=== PATIENT | female | born 1980 | race African-American/Black ===

== ENCOUNTER 2018-01-29 15:31 | Emergency (ER) | payer BC ==
[~2018-01-29] VITALS: Ht 177.8 cm; Wt 62.7 kg
[2018-01-29 15:36] VITALS: TEMP 36.7; Ht 177.8 cm; Wt 62.7 kg
--- NOTE | 2018-01-29 16:47 | EMERGENCY ROOM VISIT NOTE ---
History Report prepared by Inocencia: Jhonathan German Under the Supervision of: Dr. Joseph Talley D.O. First contact with patient: 16:10 Chief Complaint: HEADACHE Stated Complaint: HOT FLASHES, SOB, DIZZINESS, CONFUSION,MIGRAINE History of Present Illness The patient is a 38 year old female who presents to the Emergency Room with complaints of persistent hot flashes beginning a week ago. Per resident, the patient been having hot flashes for the last week and has about 18 episodes per day. He states that the patient also complains of vaginal bleeding, night diaphoresis, confusion, slurred speech, a headache, SOB, heart racing, and blurry vision. He reports that the patient been having vaginal bleeding for the last two weeks, but was having regular periods before her vaginal bleeding began. He states that the patient wakes up at night with diaphoresis and that she becomes confused and has blurry vision whenever she has a hot flash. He notes that the patient's headache is located at the back of her head and behind her eyes. He reports that the patient denies any calf pain. He reports that the patient was last sexually active three weeks ago. He states that the patient recently traveled by plane from [place] to [place]. He notes that the patient has a history of TMJ dysfunction but does not have a personal history or family history of thyroid problems. He reports that the patient has a family history of blood clots. He states that the patient occasionally takes Xanax. He notes that the patient is not currently experiencing any symptoms. Source of History: other (resident) Onset: a week ago Position: other (global) Symptom Intensity: 18 episodes a day Quality: other (hot flashes) Timing: other (persistent) Associated Symptoms: + headache, + diaphoresis (at night), + SOB Note: Per resident, the patient has also been experiencing vaginal bleeding, confusion , slurred speech, heart racing, and blurry vision. He notes that the patient denies having any calf pain. Review of Systems See HPI for pertinent positives & negatives. A total of 10 systems reviewed and were otherwise negative. Past Medical & Surgical Medical Problems: (1) TMJ dysfunction Family History Blood clots Social History Smoking Status: Never Smoker Marital Status: single Occupation Status: employed Allergies Uncoded Allergies: E-MYCIN (Allergy, Unknown, 10/29/02) N (Allergy, Unknown, 10/29/02) Physical Exam Vital Signs Date Time Temp Pulse Resp B/P (MAP) Pulse Ox O2 Delivery O2 Flow Rate FiO2 01/29/18 15:36 36.7 83 20 126/83 100 Room Air Medical Decision & Procedures Laboratory Results Test 01/29/18 16:59 01/29/18 17:00 ED Course 1641: The patient was evaluated in room A10 by the resident Jose Luis Berger. A complete history and physical examination were performed. I discussed the patient's case with Jose Luis Berger. 165: I saw the patient. Scribe Attestation The scribe's documentation has been prepared under my direction and personally reviewed by me in its entirety. I confirm that the note above accurately reflects all work, treatment, procedures, and medical decision making performed by me. Departure Information Referrals Karla George M.D. (PCP) Patient Instructions My [facility]
--- NOTE | 2018-01-29 16:53 | EMERGENCY ROOM VISIT NOTE ---
History First contact with patient: 16:10 Chief Complaint: HEADACHE Stated Complaint: HOT FLASHES, SOB, DIZZINESS, CONFUSION,MIGRAINE History of Present Illness The patient is a 38 year old female with a PMHx of TMJ who presents to the Emergency Room with complaints of hot flashes and vaginal bleeding for two weeks. Her hot flashes are intermittent and are accompanied by a racing heart, SOB and blurry vision. She will sometimes get slurred speech as well. She reports 18 hot flashes yesterday. She was awakened in a sweat. At present she is completely asymptomatic but her symptoms change by the minute. ROS: Denies any falls, denies any chest pain. Denies any trauma. Had a sore throat a week ago. PMHx: TMJ dysfunction, IBS Meds: Xanax occasionally. OBGYN: Currently sexually active, periods prior to two weeks ago were regular like clockwork. She has no menorrhagia or metrorrhagia. FMHx: Mom had a hysterectomy for vaginal bleeding at age 42, unaware of when exactly she had menopause. No thyroid issues. 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 Grew up in [place]. non smoker, no illicit drugs, drinks about 1 glass of wine per night. Review of Systems See HPI for pertinent positives and negatives. A total of ten systems were reviewed and were otherwise negative. Past Medical/Surgical History Medical Problems: (1) TMJ dysfunction Social History Smoking Status: Never Smoker Current/Historical Medications No Active Prescriptions or Reported Meds Physical Exam Vital Signs Date Time Temp Pulse Resp B/P (MAP) Pulse Ox O2 Delivery O2 Flow Rate FiO2 01/29/18 18:19 62 18 106/74 100 Room Air 01/29/18 17:20 60 16 103/70 100 Room Air 01/29/18 15:36 36.7 83 20 126/83 100 Room Air Physical Exam Gen: No acute distress. HEENT: Head - normocephalic and atraumatic. Pupils are equal, round, and reactive to light. Extraocular eye muscles are intact and sclera are anicteric. Ears - bilaterally patent canals with noninjected tympanic membranes and no evidence of hemotympanum. Nose - moist nasal mucosa without discharge. Mouth - moist buccal mucosa. Oropharynx is nonerythematous and there is no tonsillar exudate or edema noted. Neck: Supple; no JVD, nuchal rigidity, cervical lymphadenopathy, or auscultated bruits. Heart: Regular rate and rhythm. There is a normal S1 and S2 with no murmurs, clicks, or gallops appreciated. Lungs: Clear to auscultation bilaterally with no wheezes, rales, or rhonchi. Abdomen: Soft, completely nontender, nondistended, with good bowel sounds. There are no palpable pulsatile masses or hepatosplenomegaly. There is no guarding, rigidity, or rebound noted. Extremities: No evidence of cyanosis, clubbing, or edema. There are easily palpable peripheral pulses. Neuro:The patient is awake and alert, oriented to day, time, and place. Muscle strength is 5/5 in all 4 extremities. The patient has equal developer evangelist strength and equal pedal push and pull. There are no cerebellar signs. Pt has decreased sensation to light touch over the lateral LLE. Medical Decision & Procedures ER Provider Diagnostic Interpretation: HEAD CT NONCONTRAST CT DOSE: 679.75 mGycm HISTORY: Headache, neurological deficits in the RLE (decreased sensation) TECHNIQUE: Multiaxial CT images of the head were performed without the use of intravenous contrast. Automated exposure control was utilized for this study. A dose lowering technique was utilized adhering to the principles of ALARA. Comparison: None. Findings: The paranasal sinuses and mastoid air cells are clear. The calvarium and skull base are intact. The ventricles and sulci are within normal limits. There is no mass, hematoma, midline shift, or acute infarct. Impression: No acute intracranial abnormality. CHEST ONE VIEW PORTABLE HISTORY: Short of breath. Palpitations. COMPARISON: None. FINDINGS: The lungs are clear. The heart is normal in size. No pleural effusions. No pneumothorax. Scoliosis with thoracic spinal rods are noted. IMPRESSION: No acute process. Laboratory Results 01/29/18 17:00 Red Blood Count 3.78, Mean Corpuscular Volume 91.5, Mean Corpuscular Hemoglobin 31.0, Mean Corpuscular Hemoglobin Concent 33.8, Mean Platelet Volume 9.6, Neutrophils (%) (Auto) 38.7, Lymphocytes (%) (Auto) 53.6, Monocytes (%) (Auto) 6.5, Eosinophils (%) (Auto) 1.2, Basophils (%) (Auto) 0.0, Neutrophils # (Auto) 1.25, Lymphocytes # (Auto) 1.73, Monocytes # (Auto) 0.21, Eosinophils # (Auto) 0.04, Basophils # (Auto) 0.00 01/29/18 17:00 Test 01/29/18 17:00 01/29/18 17:06 White Blood Count 3.23 K/uL (4.8-10.8) Red Blood Count 3.78 M/uL (4.2-5.4) Hemoglobin 11.7 g/dL (12.0-16.0) Hematocrit 34.6 % (37-47) Mean Corpuscular Volume 91.5 fL (80-100) Mean Corpuscular Hemoglobin 31.0 pg (25-34) Mean Corpuscular Hemoglobin Concent 33.8 g/dl (32-36) Platelet Count 151 K/uL (130-400) Mean Platelet Volume 9.6 fL (7.4-10.4) Neutrophils (%) (Auto) 38.7 % Lymphocytes (%) (Auto) 53.6 % Monocytes (%) (Auto) 6.5 % Eosinophils (%) (Auto) 1.2 % Basophils (%) (Auto) 0.0 % Neutrophils # (Auto) 1.25 K/uL (1.4-6.5) Lymphocytes # (Auto) 1.73 K/uL (1.2-3.4) Monocytes # (Auto) 0.21 K/uL (0.11-0.59) Eosinophils # (Auto) 0.04 K/uL (0-0.5) Basophils # (Auto) 0.00 K/uL (0-0.2) RDW Standard Deviation 44.4 fL (36.4-46.3) RDW Coefficient of Variation 13.3 % (11.5-14.5) Immature Granulocyte % (Auto) 0.0 % Immature Granulocyte # (Auto) 0.00 K/uL (0.00-0.02) Red Blood Cell Morphology Unremarkable Anion Gap 6.0 mmol/L (3-11) Est Creatinine Clear Calc Drug Dose 83.0 ml/min Estimated GFR () 92.8 Estimated GFR (Non- 80.0 BUN/Creatinine Ratio 10.9 (10-20) Calcium Level 9.1 mg/dl (8.5-10.1) Magnesium Level 2.0 mg/dl (1.8-2.4) Total Bilirubin 0.3 mg/dl (0.2-1) Aspartate Amino Transf (AST/SGOT) 15 U/L (15-37) Alanine Aminotransferase (ALT/SGPT) 21 U/L (12-78) Alkaline Phosphatase 46 U/L (45-117) Total Protein 7.8 gm/dl (6.4-8.2) Albumin 4.2 gm/dl (3.4-5.0) Globulin 3.6 gm/dl (2.5-4.0) Albumin/Globulin Ratio 1.2 (0.9-2) Thyroid Stimulating Hormone (TSH) 0.839 uIu/ml (0.300-4.500) Follicle Stimulating Hormone 43.92 IU/L Bedside Troponin I < 0.030 ng/ml (0-0.045) ECG Per My Interpretation Indication: palpitations Rate (beats per minute): 57 Rhythm: sinus bradycardia Findings: no acute ischemic change, no ectopy Comparison ECG Date: no prior available Medical Decision The patient's care and disposition was discussed with Dr. Talley, Attending ED Physician. This is a 38F with hot flashes. Differential diagnosis includes but is not limited to menopause, CVA, headache, tension headache, cluster headache, migraine, subarachnoid hemorrhage, meningitis, mass, central venous thrombus, concussion, trauma and epidural/subdural hemorrhage. Triage Nursing notes were reviewed. ED Course included an extensive history and physical exam, labs, EKG, Trop and CT Head. The constellation of symptoms , timing of symptoms and family history are suggestive of perimenopause. An elevated FSH would also suggest this. Patient did mention that she had planned to have children. A referral to [facility] will be made for the patient. A neurological exam showed asymmetrical sensation of the distal RLE vs the LLE. I 'm not sure if this is acute or chronic and neither does the patient. There are possible numerous causes for this including peripheral nerve compression, peripheral nerve injury etc. In the setting of another more probable cause of her symptoms it's unlikely that this is an acute event. 4:30pm - Pt was seen and examined at bedside. 4:45pm - Case discussed with Dr. Talley and initial orders were placed. 6:30pm - CT and Blood work results were discussed with patient. Follow up [facility] OBGYN will be arranged for elevated FSH. PCP follow up for asymmetrical peripheral neuropathy. MRI can be considered if symptoms persist. The pt was informed about the findings as listed above. All questions were answered. Return instructions were outlined and the patient was discharged in good condition. The patient was referred to PCP for recheck of the current condition. Head Trauma GCS Score: 15 Impression Primary Impression: Hot flashes Departure Information Dispostion Home / Self-Care Condition GOOD Prescriptions No Active Prescriptions or Reported Meds Referrals Karla George M.D. (PCP) Patient Instructions My [facility] Additional Instructions The exact cause of your symptoms cannot definitely be identified. Illness related to your heart, liver, lungs, kidneys and head have been ruled out with normal biochemical markers, a normal EKG and a normal CT Scan of the head. We did find an elevated FSH (Follicle Stimulating Hormone), this may suggest that your symptoms are related to perimenopause. A follow up with [facility] OBGYN will be arranged for you. Please keep this appointment. Please follow up with a Primary Care Provider regarding the discrepancy in sensation between the Right Lower Extremity and Left Lower Extremity. There are a multitude of causes that may explain these symptoms including vitamin deficiency, sugar changes, nerve compression or previous nerve trauma. If symptoms continue your primary care provider may want to get an MRI of your brain. Return to the clinic if your symptoms worsen or cause a debilitating state where you cannot perform your activities of daily living. Resident Involvement: Resident Care Provided Care Provided: Adult ED
--- NOTE | 2018-01-29 17:03 | EMERGENCY ROOM VISIT NOTE ---
ED Visit Note First contact with patient: 16:10 Resident Physician Supervision Note: I was present with Dr. Jose Luis Berger during the history and exam. I discussed the case with the resident and agree with the findings and plan as documented in the note. Documented By: Joseph Talley
--- NOTE | 2018-01-29 17:13 | DIAGNOSTIC IMAGING REPORT ---
CHEST ONE VIEW PORTABLE HISTORY: Short of breath. Palpitations. COMPARISON: None. FINDINGS: The lungs are clear. The heart is normal in size. No pleural effusions. No pneumothorax. Scoliosis with thoracic spinal rods are noted. IMPRESSION: No acute process. Electronically signed by: Waldemar Duarte M.D. 01/29/2018 5:11 PM Dictated Date/Time: 01/29/2018 5:10 PM
[2018-01-29 17:16] LABS: HEMATOCRIT 34.6 % (37-47); HEMOGLOBIN 11.7 g/dL (12.0-16.0); MEAN CELL VOLUME 91.5 fL (80-100); MEAN CORPUSCULAR HGB CONC 33.8 g/dl (32-36); MEAN PLATELET VOLUME 9.6 fL (7.4-10.4); PLATELET COUNT 151 K/uL (130-400); RED CELL DISTRIBUTION WIDTH CV 13.3 % (11.5-14.5); RED CELL DISTRIBUTION WIDTH SD 44.4 fL (36.4-46.3); WHITE BLOOD COUNT 3.23 K/uL (4.8-10.8)
--- NOTE | 2018-01-29 17:21 | DIAGNOSTIC IMAGING REPORT ---
HEAD CT NONCONTRAST CT DOSE: 679.75 mGycm HISTORY: Headache, neurological deficits in the RLE (decreased sensation) TECHNIQUE: Multiaxial CT images of the head were performed without the use of intravenous contrast. Automated exposure control was utilized for this study. A dose lowering technique was utilized adhering to the principles of ALARA. Comparison: None. Findings: The paranasal sinuses and mastoid air cells are clear. The calvarium and skull base are intact. The ventricles and sulci are within normal limits. There is no mass, hematoma, midline shift, or acute infarct. Impression: No acute intracranial abnormality. Electronically signed by: Waldemar Duarte M.D. 01/29/2018 5:20 PM Dictated Date/Time: 01/29/2018 5:17 PM
[2018-01-29 17:48] LABS: EOS % 1.2 %; EOS ABS # 0.04 K/uL (0-0.5); LYMPH % 53.6 %; LYMPH ABS # 1.73 K/uL (1.2-3.4); MONO % 6.5 %; MONO ABS # 0.21 K/uL (0.11-0.59); NEUT % 38.7 %; NEUT ABS # 1.25 K/uL (1.4-6.5)
[2018-01-29 17:56] LABS: ALBUMIN 4.2 gm/dl (3.4-5.0); CALCIUM 9.1 mg/dl (8.5-10.1); CREATININE 0.91 mg/dl (0.60-1.20); POTASSIUM 3.8 mmol/L (3.5-5.1); TOTAL PROTEIN 7.8 gm/dl (6.4-8.2)
[2018-01-29 19:41] VITALS: BP 108/64; PULSE 72; O2SAT 98
== END 2018-01-29 19:42 | disposition home or self-care (01) ==
LOC: C.EDA 16:44
DX: R23.2 Flushing (principal); K58.9 Irritable bowel syndrome, unspecified; M26.629 Arthralgia of temporomandibular joint, unspecified side

== ENCOUNTER 2019-07-01 13:13 | Inpatient (IN) ==
[2019-07-01] MEDS ORDERED: OXYTOCIN 30 UNITS/500 ML BAG IV PRN ×2 (13:20→18:22)
--- NOTE | 2019-07-01 13:30 | Obstetrical Progress Note ---
Date of Service July 01, 2019 Subjective Admit Note 39 F P0010 at 39.6 weeks admitted in active labor. Cervix is 8/100/0. FHT Cat 1. GBS is negative. Will admit in active labor and anticipate normal delivery. Results & Data Vital Signs (Past 12 Hours) Vital Signs Pulse BP 07/01/19 13:19 82 118/62
[2019-07-01] MEDS ORDERED: fentaNYL citrate 100 MCG/2 ML VIAL ONE (13:35)
[2019-07-01] MEDS ORDERED: BUPIVACAINE 0.25% 30 ML VIAL ONE (13:35)
[2019-07-01] MEDS ORDERED: ePHEDrine sulfate 50 MG/ML AMP ONE (13:35)
[2019-07-01] MEDS: LACTATED RINGER'S 1,000 ML IV PRN ×2 (13:35→14:41)
[2019-07-01] MEDS ORDERED: fentaNYL 2MCG/ML ROPIV 1.25MG/ML 100 ML BAG EPI ONE (13:36)
[2019-07-01 13:47] LABS: Hematocrit (blood only) 33.5 % (37-47); Hemoglobin 11.3 g/dL (12.0-16.0); Mean Corpuscular Hemoglobin 31.9 pg (25-34); Mean Corpuscular Volume 94.6 fL (80-100); Mean Platelet Volume 10.6 fL (7.4-10.4); Platelet Count 139 K/uL (130-400); RDW Coefficient of Variation 14.5 % (11.5-14.5); RDW Standard Deviation 50.3 fL (36.4-46.3); Red Blood Count 3.54 M/uL (4.2-5.4); White Blood Count 7.59 K/uL (4.8-10.8)
[2019-07-01 13:48] LABS: Mean Corpuscular Hgb Conc 33.7 g/dL (32-36)
--- NOTE | 2019-07-01 13:52 | Anesthesiology Consultation ---
Date of Service July 01, 2019 Assessment & Plan (1) Encounter for pre-operative examination: Chart Review Chart Review: Acceptable Risk for Labor Epidural History Height/Weight Height: 5 ft 10 in Weight: 80.739 kg Allergies Allergy/AdvReac Type Severity Reaction Status Date / Time latex Allergy LOCALIZED Verified 05/01/19 09:17 SWELLING Amoxicillin Allergy Severe SWELLING Uncoded 05/01/18 08:32 OF NOSE, TONGUE, THROAT Erythromycin Allergy Severe SWELLING Uncoded 05/01/18 08:32 OF NOSE, TONGUE, THROAT Penicillins Allergy Severe SWELLING Uncoded 05/01/18 08:32 OF NOSE, TONGUE, THROAT SULFA DRUGS Allergy Severe SWELLING Uncoded 05/01/18 08:32 OF NOSE, TONGUE, THROAT Medications Home Medications Medication Instructions Recorded Confirmed Last Taken cholecalciferol (vitamin D3) 400 unit PO DAILY 06/23/19 07/01/19 06/28/19 11:00 [Vitamin D3] magnesium hydroxide [Milk of 15 ml PO DAILY PRN 06/23/19 07/01/19 06/23/19 Magnesia] polyethylene glycol 3350 [Miralax] 17 g DAILY 06/23/19 07/01/19 06/30/19 12:00 no.144-folic acid 400 mcg PO DAILY 06/23/19 07/01/19 06/30/19 14:00 [] Past Medical History Medical History Esophageal reflux worsening with ; improved with dietary changes Hiatal hernia IBS (irritable bowel syndrome) Low back pain related Migraine Palpitations related Stroke Past Family History Family History Mother Hypertension Father Family history of diabetes mellitus Hypertension Grandfather (Maternal) Cancer Aunt Cancer Uncle Cancer Stroke Past Surgical History Surgical History History of colonoscopy History of esophagogastroduodenoscopy (EGD) History of lumbar fusion History of sinus surgery Social History Smoking Status: Never smoker Do You Dip or Chew Tobacco: No Hx Alcohol Use: Yes (when not ) Alcohol type: beer, wine and hard liquor alcohol intake frequency: a few times a week Hx Substance Use: No substance use type: does not use Physical Exam Vital Signs Last Vital Signs Pulse 82 07/01/19 13:19 BP 118/62 07/01/19 13:19 Testing Laboratory Results 07/01/19 13:36
--- NOTE | 2019-07-01 14:15 | Obstetrical Progress Note ---
Date of Service July 01, 2019 Physical Exam Genitourinary: OB Exam Monitor Tracing: + external FHT monitor used, + external uterine monitor used and + category I Cytotec 25 mcg placed. Cervix unchanged. Results & Data Vital Signs (Past 12 Hours) Vital Signs Pulse BP Pulse Ox 07/01/19 14:12 82 100 07/01/19 13:19 82 118/62
[2019-07-01] MEDS ORDERED: NALOXONE HCL 0.4 MG/1 ML VIAL/CARP IV PRN (14:32)
[2019-07-01] MEDS ORDERED: ePHEDrine sulfate 50 MG/ML AMP IV PRN (14:32)
[2019-07-01] MEDS ORDERED: NALOXONE HCL 1 MG in SODIUM CHLORIDE 0.9% 1000ML 1,000 ML IV PRN (14:32)
[2019-07-01] MEDS ORDERED: fentaNYL 2MCG/ML ROPIV 1.25MG/ML 100 ML BAG EPI PRN (14:32)
[2019-07-01] MEDS ORDERED: ONDANSETRON INJ 2 MG/ML 2 ML VIAL IV PRN (14:32)
--- NOTE | 2019-07-01 14:34 | Obstetrical Progress Note ---
Date of Service July 01, 2019 Physical Exam Genitourinary: Manual OB Exam: + cervical dilation 8 cm and 9 cm, + cervical effacement 100%, + station 0 and + amniotic fluid clear OB Exam Monitor Tracing: + external FHT monitor used, + external uterine monitor used and + category I epidural in place Results & Data Vital Signs (Past 12 Hours) Vital Signs Pulse BP Pulse Ox 07/01/19 14:31 72 94 07/01/19 14:29 68 101/57 L 07/01/19 14:27 67 99/53 L 97 07/01/19 14:25 65 98/55 L 07/01/19 14:23 65 108/59 L 07/01/19 14:22 71 100 07/01/19 14:20 76 120/70 07/01/19 14:17 94 H 100 07/01/19 14:12 82 100 07/01/19 13:19 82 118/62
--- NOTE | 2019-07-01 16:32 | Delivery Summary ---
Vaginal Delivery Summary Date of Service July 01, 2019 Vaginal Delivery Summary Delivery Note live female DIANA over intact perineum with delayed cord clamping with Apgars 8/9 weight pending. Cord blood obtained followed by spontaneous delivery of intact placenta. No tears. EBL 250 ml. Final sponge and instrument count are correct. Mom and baby stable.
[2019-07-01] MEDS ORDERED: BENZOCAINE 20% AER SPR 82.5 GM CAN EXT PRN (18:22)
[2019-07-01] MEDS ORDERED: bisacodyL 10 MG SUPP PR PRN (18:22)
[2019-07-01] MEDS ORDERED: HYDROCORTISONE ACETATE 25 MG SUPP PR PRN (18:22)
[2019-07-01] MEDS ORDERED: DIPHTHERIA/TETANUS/PERTUSSIS 0.5 ML SYR/VIAL IM ONE (18:22)
[2019-07-01] MEDS ORDERED: SUPERCREAM 0.870% 15 GM JAR EXT PRN (18:22)
[2019-07-01] MEDS ORDERED: IBUPROFEN 600 MG TAB PO ONE (18:24)
--- NOTE | 2019-07-01 18:47 | Anesthesia Procedure Note ---
Date of Service July 01, 2019 Anesthesia Post Epidural Note Vital Signs Vital Signs: Temp Pulse Resp BP Pulse Ox 36.8 C 59 L 18 104/62 98 07/01/19 16:55 07/01/19 18:36 07/01/19 16:55 07/01/19 18:36 07/01/19 16:22 Notes Mental Status: alert / awake / arousable and participated in evaluation Nausea / Vomiting: adequately controlled Pain: adequately controlled Airway Patency, RR, SpO2: stable & adequate BP & HR: stable & adequate Hydration State: stable & adequate Neuraxial Anesthesia: was administered and sensory block is resolving Anesthetic Complications: no major complications apparent Epidural: Removed without complications and With tip intact
[2019-07-01] MEDS: ACETAMINOPHEN 325 MG TAB PO PRN (20:47)
[2019-07-01] MEDS: DOCUSATE SODIUM 100 MG CAP PO SCH (20:47)
[2019-07-01] MEDS: IBUPROFEN 600 MG TAB PO PRN (23:32)
[2019-07-02] MEDS: IBUPROFEN 600 MG TAB PO PRN ×3 (03:13→20:18)
[2019-07-02 06:23] LABS: Hematocrit (blood only) 26.8 % (37-47); Mean Corpuscular Hgb Conc 33.6 g/dL (32-36); Mean Corpuscular Volume 95.4 fL (80-100); Mean Platelet Volume 10.6 fL (7.4-10.4); Platelet Count 122 K/uL (130-400); RDW Coefficient of Variation 14.8 % (11.5-14.5); RDW Standard Deviation 51.7 fL (36.4-46.3); Red Blood Count 2.81 M/uL (4.2-5.4); White Blood Count 8.38 K/uL (4.8-10.8)
--- NOTE | 2019-07-02 07:41 | Obstetrical Progress Note ---
Date of Service July 02, 2019 Assessment & Plan (1) normal course: PPD #1 pt doing well No complaints Subjective Ambulation: ambulating normally Voiding: no voiding problems Passing Gas:: Yes Diet Tolerance:: regular diet Lochia:: Small Feeding Type:: breast feeding Review of Systems All systems reviewed & are unremarkable except as noted in HPI & below Physical Exam Constitutional WD/WN, vitals as above well developed and well nourished Eyes PERRL, conjunctivae normal, anicteric sclerae Neck trachea midline, no thyromegaly Respiratory normal respiratory effort, lungs clear to auscultation Auscultation: no crackles, no rales and no wheezes Cardiovascular RRR, no murmur, no edema Gastrointestinal (Abdomen) normal bowel sounds, soft, nontender, no hepatosplenomegaly Uterus is below umbilicus Musculoskeletal no cyanosis or clubbing, extremities motor strength 5/5 Skin no rashes, warm and dry Neurologic patellar DTR's 2+ bilat, sensation intact Psychiatric A+Ox3, euthymic affect Genitourinary normal external appearance Results & Data Vital Signs (Past 12 Hours) Vital Signs Temp Pulse Resp BP Pulse Ox 07/02/19 04:00 36.6 C 67 18 99/59 L 07/01/19 23:20 36.7 C 72 16 99/61 L 98 07/01/19 20:05 37.0 C 66 16 101/64 98
[2019-07-02] MEDS: DOCUSATE SODIUM 100 MG CAP PO SCH ×2 (10:16→20:18)
[2019-07-02] MEDS: PRENATAL VITAMIN 1 TAB PO SCH (10:16)
[2019-07-02] MEDS: ACETAMINOPHEN 325 MG TAB PO PRN (11:02)
[2019-07-02] MEDS ORDERED: bisacodyL 5 MG TABEC PO SCH (20:00)
[2019-07-03] MEDS: IBUPROFEN 600 MG TAB PO PRN (00:29)
[2019-07-03 06:25] LABS: Hematocrit (blood only) 25.4 % (37-47); Hemoglobin 8.7 g/dL (12.0-16.0)
--- NOTE | 2019-07-03 08:05 | Obstetrical Progress Note ---
Date of Service July 03, 2019 Subjective Patient is seen and examined. She feels well, no complaints. 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 IV iron transfusions Vital Signs Temp Pulse Resp BP Pulse Ox 07/02/19 23:20 36.6 C 71 16 118/72 98 07/02/19 20:00 36.9 C 76 16 99/64 L 98 07/02/19 15:07 36.8 C 61 18 106/69 100 07/02/19 13:00 36.9 C 69 20 106/71 07/02/19 08:20 36.9 C 70 20 104/67 100 Lab Results 07/01/19 07/02/19 07/03/19 Range/Units 13:36 06:02 06:14 WBC 7.59 8.38 (4.8-10.8) K/uL RBC 3.54 L 2.81 L (4.2-5.4) M/uL Hgb 11.3 L 9.0 L 8.7 L (12.0-16.0) g/dL Hct 33.5 L 26.8 L 25.4 L (37-47) % MCV 94.6 95.4 (80-100) fL MCH 31.9 32.0 (25-34) pg MCHC 33.7 33.6 (32-36) g/dL RDW Std Deviation 50.3 H 51.7 H (36.4-46.3) fL RDW Coeff of Kwaku 14.5 14.8 H (11.5-14.5) % Plt Count 139 122 L (130-400) K/uL MPV 10.6 H 10.6 H (7.4-10.4) fL PE: General: Alert, orientedx3, NAD Abd: soft, NT, fundus firm, below Umbilicus Perineum intact, Lochia rubra minimal Ext; NT, no edema AP: 39 yo s/p , ppd# 2 VSS Afebrile doing well Continue routine care h/o anemia and IV iron transfusions due to IBS-C Hb 8.7, asymptomatic 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
[2019-07-03] MEDS: DOCUSATE SODIUM 100 MG CAP PO SCH (09:22)
[2019-07-03] MEDS: PRENATAL VITAMIN 1 TAB PO SCH (09:22)
== END 2019-07-03 16:15 | disposition home or self-care (01) | DRG 807 ==
LOC: OPB 13:13 → 4S1 13:15 → 4S2 19:05